=== PATIENT | female | born 1965 | race Caucasian/White ===

== ENCOUNTER → 2016-04-13 | Outpatient (CLI) | payer OTHER ==
[2016-04-13 19:58] LABS: Basophils # (A) 0.1 k/uL (0-0.2); Basophils % (A) 1 %; CH 28.3; CHCM 32.6; Eosinophils # (A) 0.5 k/uL (0-0.7); Eosinophils % (A) 6 %; HDW 2.58; HGB 13.1 gm/dL (11.4-16.0); Luc # (Auto) 0.09; Luc % (Auto) 1; Lymphocytes # (A) 1.4 k/uL (1.0-4.8); Lymphocytes % (A) 17 %; MCH 27.8 pg (25.0-35.0); MCV 87.1 fL (80.0-100.0); Mean Platelet Volume 9.1; Monocytes # (A) 0.5 k/uL (0-1.0); Monocytes % (A) 6 %; Neutrophils # (A) 5.6 k/uL (1.3-7.7); Neutrophils % (A) 69 %; RBC 4.71 m/uL (3.80-5.40); RDW 13.3 % (11.5-15.5); WBC 8.2 k/uL (3.8-10.6); WBC (Perox) 7.78
[2016-04-13 20:08] LABS: ALT 103 U/L (9-52); AST 68 U/L (14-36); Alkaline Phosphatase 115 U/L (38-126); Anion Gap 12 mmol/L; Blood Urea Nitrogen 19 mg/dL (7-17); Calcium 9.5 mg/dL (8.4-10.2); Carbon Dioxide 24 mmol/L (22-30); Chloride 107 mmol/L (98-107); Cholesterol 143 mg/dL (<200); Glucose 160 mg/dL (74-99); HDL Cholesterol 50 mg/dL (40-60); Non-African American GFR(MDRD) >60 (>60 ml/min/1.73 sqM); Potassium 4.5 mmol/L (3.5-5.1); Sodium 143 mmol/L (137-145); Total Bilirubin 0.5 mg/dL (0.2-1.3); Total Protein 6.9 g/dL (6.3-8.2); Triglycerides 135 mg/dL (<150)
[2016-04-13 20:11] LABS: Hemoglobin A1C 7.3 % (4.2-6.1)
== END | disposition home or self-care (01) ==
LOC: MMGSC 09:45
PROVIDERS: ATTEND Family Medicine
DX: E11.9 Type 2 diabetes mellitus without complications (principal); I10 Essential (primary) hypertension; R79.89 Other specified abnormal findings of blood chemistry
CPT/HCPCS: 36415; 80053; 80061; 83036; 84439; 84443; 85025

== ENCOUNTER → 2016-07-26 | Outpatient (CLI) | payer OTHER ==
[2016-07-26 21:05] LABS: Bilirubin, Delta 0.4 mg/dL (0.0-0.2); Total Bilirubin 0.9 mg/dL (0.2-1.3); Total Protein 7.6 g/dL (6.3-8.2)
== END ==
LOC: MMGSC 10:46
PROVIDERS: ATTEND Family Medicine
DX: E11.9 Type 2 diabetes mellitus without complications (principal); R79.89 Other specified abnormal findings of blood chemistry
CPT/HCPCS: 36415; 80076; 83036

== ENCOUNTER → 2024-01-25 | Outpatient (CLI) | payer BC ==
--- NOTE | 2024-01-25 21:58 | MR ---
EXAMINATION TYPE: MR shoulder LT wo con DATE OF EXAM: 01/25/2024 COMPARISON: Outside left shoulder x-ray December 05, 2023 HISTORY: Left shoulder pain and weakness x6 months, difficult to raise arm TECHNIQUE: Multiplanar, multisequence imaging of the left shoulder is performed without contrast. FINDINGS: Rotator Cuff: Some increased signal involving the posterior two thirds of the distal supraspinatus te ndon near insertion with additional fluid signal consistent with tear at the articular surface. Infra spinatus tendon is intact. Subscapularis tendon is intact. Rotator cuff muscle bulk is preserved. Acromioclavicular Joint: Moderate narrowing without significant spurring. Moderate capsular hypertrop hy but underlying fat plane is maintained. Glenohumeral Joint: Small joint effusion. No significant spurring. Labrum: Increased signal superior labrum consistent with degenerative tear. Biceps Tendon: The long head of biceps is in normal location within bicipital groove. Bone marrow signal: Tiny subchondral cystic change involving the superior lateral aspect of the humer al head. Other: No additional significant abnormality is appreciated. IMPRESSION: 1. Tendinosis/partial tearing of the distal supraspinatus tendon. 2. Degenerative superior labral tear. 3. Moderate AC joint arthropathy. [facility], , 01/25/2024 9:56 PM
== END | disposition home or self-care (01) ==
LOC: RADMRIMAIN 18:23
PROVIDERS: ATTEND Orthopaedic Surgery
DX: S43.432A Superior glenoid labrum lesion of left shoulder, initial encounter (principal); M75.112 Incomplete rotator cuff tear or rupture of left shoulder, not specified as traumatic; M19.012 Primary osteoarthritis, left shoulder

== ENCOUNTER 2024-03-14 05:46 | Day surgery (SDC) | payer BC ==
--- NOTE | 2024-03-13 08:45 | P.HPOR ---
History of Present Illness H&P Date: 03/13/24 Chief Complaint: Left shoulder pain The patient is a 58-year-old [id number] female who presents with left shoulder pain for the past 6 months. She is having pain with overhead activity and at night. She's tried medications, and injection, and home exercises withou t much relief. She has daily pain that limits her. Review of Systems Per HPI Past Medical History Additional Past Medical History / Comment(s): Crohn's, type 2 diabetes, hypertension Past Surgical History: Breast Surgery, Hysterectomy Medications and Allergies Home Medications and Allergies Comment(s): Adderall, Lipitor, losartan Physical Examination - Shoulder left Tenderness with palpation: anterior, bicipital groove Pain: with abduction, with forward flexion ROM: forward flexion: 120 degrees ROM: internal rotation: lower lumbar ROM: external rotation: 50 degrees Crepitus with motion: Yes Tests: internal impingement tests: positive, external impingment tests: positive Results Patient is a well-developed well-nourished female approximate 5 foot 6, 170 pounds of endomorphic habitus. HEENT exam is nonfocal, neck supple. She's tender about the anterior subacromial space of the left shoulder. There is moderate crepitus. Motor strength is 5 / 5 for external rotation and 5 -/5 for abduction. Pineda, Neer's sign, and speed test are positive. Her distal neurovascular exam appears intact in the left upper extremity. - Diagnostic results Shoulder MRI: image reviewed (MRI of the left shoulder obtained in the office shows a partial supraspinatus tear along with a superior labral tear.) Assessment and Plan Assessment: Left shoulder impingement/symptomatic rotator cuff tear/superior labral tear Plan: I talked the patient at length regarding her condition along with treatment op tions. At this point she is quite symptomatic despite conservative measures. After a thorough discussion she opted to proceed with surgery. We'll plan was to a left shoulder arthroscopy with probable subacromial decompression, rotator cuff debridement versus repair, and possible biceps tenotomy. Risks and benefits were discussed at length in layman's terms. We will likely perform that as an outpatient procedure.
[2024-03-14] MEDS ORDERED: SCOPOLAMINE 1 MG/72 HR PATCH TRANSDERM ONE (06:11)
[2024-03-14 06:45] LABS: Glucose,Whole Blood 129 mg/dL (70-110)
[2024-03-14] MEDS: LACTATED RINGERS 1,000 ML IV SCH (06:45)
[2024-03-14] MEDS: ONDANSETRON 4 MG/2 ML VIAL IVP ONE (06:46)
[2024-03-14] MEDS: DEXAMETHASONE SOD PHOSPHATE 4 MG/ML 1 ML VIAL IV ONE (06:46)
[2024-03-14] MEDS: IV FLUID CONTINUATION 1,000 ML IV ONE (06:50)
[2024-03-14] MEDS: MIDAZOLAM 2 MG/2 ML VIAL IV PRN (06:56)
[2024-03-14] MEDS: fentaNYL (PF) 50 MCG/ML 2 ML AMP IVP STA (06:57)
[2024-03-14] MEDS ORDERED: HYDROmorphone 0.5 MG/0.5 ML SYRINGE IVP PRN (07:00)
--- NOTE | 2024-03-14 07:24 | P.ANPRN ---
Procedure Note - Anesthesia - Nerve Block Performed Left Interscalene Single Time Out Performed: Yes Date of Procedure: 03/14/24 Procedure Start Time: 06:56 Procedure Stop Time: 07:03 Location of Patient: PreOp Indication: Acute Post-Operative Pain, Requested by Surgeon Sedation Type: Sedate with meaningful contact maintained Preparation: Sterile Prep Position: Supine Needle Types: Pajunk Needle Gauge: 21 Ultrasound used to visualize needle placement: Yes Ultrasound used to observe medication spread: Yes Injectate: 0.5% Ropivacaine (see comment for volume) (25 ml + 4 mg de xamethasone) Blood Aspirated: No Pain Paresthesia on Injection Noted: No Resistance on Injection: Normal Image Stored and Saved: Yes Events: Uneventful and Well Tolerated
[2024-03-14] MEDS ORDERED: HYDROmorphone (PF) 1 MG/ML ONE (07:33)
[2024-03-14] MEDS ORDERED: LIDOCAINE 1% INJ 10MG/ML (20 ML MDV) ONE (07:33)
[2024-03-14] MEDS ORDERED: ROPIVACAINE 5 MG/ML 30 ML VIAL ONE (07:33)
[2024-03-14] MEDS ORDERED: fentaNYL (PF) 50 MCG/ML 2 ML AMP ONE (07:33)
[2024-03-14] MEDS ORDERED: SUCCINYLCHOLINE CHLORIDE 200 MG/10 ML VIAL IV ONE (07:33)
[2024-03-14] MEDS ORDERED: PHENYLEPHRINE-0.9% NACL SYG 1,000 MCG/10 ML SYRINGE ONE (07:33)
[2024-03-14] MEDS ORDERED: PROPOFOL 10 MG/ML 20 ML VIAL IV ONE (07:33)
[2024-03-14] MEDS ORDERED: DEXAMETHASONE SOD PHOSPHATE 4 MG/ML 1 ML VIAL ONE (07:33)
[2024-03-14] MEDS: EPINEPHrine (PF) 1 ML in SODIUM CHLORIDE 0.9% IRRIGATIO 3,000 ML IRRIGATION ONE ×4 (07:38)
--- NOTE | 2024-03-14 09:12 | P.OP ---
Date of Procedure: 03/14/24 Preoperative Diagnosis: Left shoulder impingement/rotator cuff tear Postoperative Diagnosis: 1 cm full-thickness left rotator cuff tear, adhesive capsulitis left shoulder Procedure(s) Performed: Left shoulder arthroscopic partial synovectomy/subacromial de compression/manipulation under anesthesia/rotator cuff repair Implants: Arthrex 4.75 mm swivel lock anchor x 1, 5.5 mm swivel lock anchor x 1 Anesthesia: YUVALA, regional Surgeon: Saman Ibrahim Machine Inker #1: Brayan Fountain Estimated Blood Loss (ml): 10 Pathology: none sent Condition: stable Disposition: PACU Indications for Procedure: The patient is a 58-year-old female who presents with persistent/progressive left shoulder pain despite conservative measures. A discussion of the risks and benefits of operative intervention versus continued conservative measures was made with the patient. She opted to proceed with surgery. Operative risks include infection, neurovascular injury, development of blood clots, possible tendon rerupture, possible postoperative stiffness and need for subsequent procedures was discussed. Informed consent was obtained. Operative Findings: As below Description of Procedure: The patient was brought to the operating room, and after induction of general anesthesia was placed in a beachchair position. A preoperative interscalene block was placed for postoperative analgesia. I examined the left shoulder. There was moderate lack of passive range of motion. Gentle manipulation was performed obtaining full external rotation and then full forward elevation. Mild adhesions were encountered. The left upper extremity was prepped and draped in normal fashion. The bony outlines the acromion, distal clavicle, and coracoid process were outlined with a skin marker. The glenohumeral joint was inflated with 50 mL of saline utilizing a spinal needle from posterior approach. A posterior portal was made through a 5 mm skin incision 1 cm medial and inferior to the posterior lateral border time. A blunt trocar was used to easily into the joint. Diagnostic arthroscopy was performed. An anterior portal was made just lateral to the coracoid process entering the joint above the subscapularis tendon. The subscapularis tendon appeared to be intact. Marked synovitis involve the rotator interval was noted. This was debrided with a motorized shaver back to a stable base. Anterior labrum was intact. The inferior recess was inspected. The posterior labrum was intact. The intra- articular portion of the biceps and its anchor appear to be intact. The rotator cuff appeared intact on the articular surface. The arthroscope was then placed into the subacromial space. A lateral portal was made 2 centimeters inferior to the anterior lateral border of the acromion. The soft tissue on the undersurface of the acromion was debrided with a motorized shaver and electrocautery clearly defining the anterior medial and lateral borders as well as the distal clavicle. An anterior inferior acromioplasty was performed with a motorized gabriel starting anterolateral, then extending this posteriorly, then extending this medially. I converted to a flat acromion and this was verified in the posterior and lateral viewing portals. The rotator cuff was inspected. A high-grade partial/full-thickness tear involving the supraspinatus was noted measuring approximately 1 cm. The soft tissue was debrided back to stable base with a motorized shaver. The rotator cuff was easily mobilized and brought back to the greater tuberosity. The greater tuberosity was lightly decorticating with a shaver down to a bleeding bony surface. An accessory superior lateral portal was made just off the lateral edge of the acromion for anchor placement. A 4.75 mm swivel lock anchor preloaded with fiber tape was then placed just off the articular surface with the appropriate starting awl. Good purchase was obtained. These fiber tapes were then passed the rotator cuff with a scorpion suture passer. A lateral row was created utilizing these tapes. A 5.5 mm swivel lock anchor was placed laterally after appropriate soft tissue tensioning. Good purchase was obtained. Final arthroscopic view showed adequate compression at the footprint. The arthroscope was then removed. The portals were closed with simple 3-0 nylon sutures. A sterile dressing was applied in addition to an abductor brace. The patient was then awoken from general anesthesia and transferred to recovery room in good condition. Blood loss was estimated at 10 mL. No complications were incurred. Sponge and needle counts were correct in the case. Brayan WHITMAN assisted and the major components of the case to include arm positioning, anchor placement, and rotator cuff repair.
[2024-03-14 09:24] VITALS: TEMP 97
[2024-03-14] MEDS: ALBUTEROL NEBULIZED 2.5 MG/3 ML INHALATION STA (09:46)
[2024-03-14 10:48] VITALS: PULSE 89; RESP 16
[2024-03-14] MEDS: ONDANSETRON ODT 4 MG TAB PO ONE (10:58)
[2024-03-14 11:44] VITALS: BP 101/67
== END 2024-03-14 12:00 | disposition home or self-care (01) ==
LOC: OR 05:46
PROVIDERS: ATTEND Orthopaedic Surgery
DX: M75.122 Complete rotator cuff tear or rupture of left shoulder, not specified as traumatic (principal); M75.42 Impingement syndrome of left shoulder; M75.02 Adhesive capsulitis of left shoulder; I10 Essential (primary) hypertension; G89.18 Other acute postprocedural pain; K50.90 Crohn's disease, unspecified, without complications; E11.9 Type 2 diabetes mellitus without complications; E78.5 Hyperlipidemia, unspecified; F12.90 Cannabis use, unspecified, uncomplicated; Z90.710 Acquired absence of both cervix and uterus; Z98.890 Other specified postprocedural states; Z79.899 Other long term (current) drug therapy; Z88.2 Allergy status to sulfonamides; Z85.41 Personal history of malignant neoplasm of cervix uteri
CPT/HCPCS: 64415; 29827; C1713 ×2; C1894; J2250; J0330; J1100; J0690; J2405; J0171; J2003; J3010; J1171; J2795; J2704; J2371